=== PATIENT | female | born 1945 | race Caucasian/White ===

== ENCOUNTER 2021-12-01 08:15 | Outpatient (CLI) | payer MEDICARE, BC, SELFPAY ==
[2021-12-01 10:27] LABS: Cholesterol* 236 mg/dL (90-199)
[2021-12-01 10:28] LABS: HDL Cholesterol* 71 mg/dL (>=50); LDL Cholesterol Calculated 145 mg/dL (<100); Triglycerides* 101 mg/dL (40-149)
[2021-12-05 14:39] LABS: Thyroid Stimulating Hormone* 0.543 uIU/mL (0.270-4.20)
== END 2021-12-01 08:16 | disposition home or self-care (01) ==
PROVIDERS: PCP Internal Medicine; Visit Provider Internal Medicine
DX: E78.5 Hyperlipidemia, unspecified (principal); E03.9 Hypothyroidism, unspecified; R73.03 Prediabetes
CPT/HCPCS: 80061; 82947; 84443

== ENCOUNTER 2021-12-07 09:04 | Outpatient (CLI) | payer MEDICARE, BC, SELFPAY ==
--- NOTE | 2021-12-07 09:15 | CRLHL7_ITS ---
For Patients: As a result of the Century Cures Act, medical imaging exams and procedure reports are released immediately into your electronic medical record. You may view this report before your referring provider. If you have questions, please contact your health care provider. BILATERAL SCREENING MAMMOGRAM WITH COMPUTER-AIDED DETECTION AND TOMOSYNTHESIS TECHNIQUE: CC and MLO views were obtained. These mammographic images have been obtained using full-field digital technique. These mammographic images were interpreted with the benefit of computer-aided detection. Breast Tomosynthesis was used in this interpretation. COMPARISON FILM: 08/27/19, 08/24/16, 06/14/15. FINDINGS: The breasts are almost entirely fatty There are scattered areas of fibroglandular density The breasts are heterogeneously dense, which may obscure small masses The breasts are extremely dense, which lowers the sensitivity of mammography IMPRESSION: There is no radiographic evidence for malignancy. ASSESSMENT: BI-RADS Category 2: Benign RECOMMENDATION: Routine screening mammogram in 1 year. A lay language report of this examination will be provided to the patient. Bartolome Ordonez M.D. Diagnostic Radiologist [email or web address] ALBA/Dictated by: Bartolome Ordonez MD @ 12/07/2021 10:19:00 AM (Electronically Signed)
== END 2021-12-07 09:05 | disposition home or self-care (01) ==
PROVIDERS: PCP Internal Medicine; Visit Provider Internal Medicine
DX: Z12.31 Encounter for screening mammogram for malignant neoplasm of breast (principal); R92.2 Inconclusive mammogram
CPT/HCPCS: 77063; 77067

== ENCOUNTER 2021-12-14 12:56 | Outpatient (CLI) | payer MEDICARE, BC, SELFPAY | END 2021-12-14 12:57 | disposition home or self-care (01) | LOC: RAD 12:58 | PROVIDERS: PCP Internal Medicine; Visit Provider Internal Medicine | DX: R01.1 Cardiac murmur, unspecified (principal); I51.7 Cardiomegaly; I35.1 Nonrheumatic aortic (valve) insufficiency | CPT/HCPCS: 93306 ==

== ENCOUNTER 2022-09-14 15:49 | Outpatient (CLI) | payer MEDICARE, SELFPAY | END 2022-09-14 15:50 | disposition home or self-care (01) | PROVIDERS: PCP Internal Medicine; Visit Provider Internal Medicine | DX: R53.83 Other fatigue (principal); R73.03 Prediabetes; E78.5 Hyperlipidemia, unspecified; E03.9 Hypothyroidism, unspecified | CPT/HCPCS: 80053; 82607; 83540; 83550; 83735; 84443 ==